=== PATIENT | female | born 1950 | race Caucasian/White ===

== ENCOUNTER 2016-09-16 14:36 | Inpatient (IN) | payer MEDICAID ==
[~2016-09-16] VITALS: Ht 167.6 cm; Wt 72.2 kg
[~2016-09-16 14:36] MED LIST: ALPR0.5T PO; AML5T PO; ASPI-498 PO; CARI-277 PO; ERGO1CAP6 PO; LIS20T PO; NOR10T PO; SIMV-8 PO
[2016-09-16 15:43] LABS: Basophils # (auto) 0 uL; Basophils % (auto) 0.8 % (0.0-2.0); Eosinophils # (auto) 0.1 uL; Eosinophils % (auto) 1.6 % (0.0-7.0); Hematocrit 38.1 % (36.0-46.0); Hemoglobin 12.9 g/dL (12.2-16.2); Lymphocytes # (auto) 1.5 uL; Lymphocytes % (auto) 25.5 % (10.0-50.0); Mean Corpuscular Hemoglobin 32.7 pg (28.0-32.0); Mean Corpuscular Hgb Conc. 33.9 g/dL (32.0-36.0); Mean Corpuscular Volume 96.4 fL (80.0-100.0); Monocytes # (auto) 0.3 uL; Monocytes % (auto) 5.4 % (0.0-12.0); Neutrophils # (auto) 3.9 uL; Neutrophils % (auto) 66.7 % (37.0-80.0); Platelet Count (auto) 238 10^3/uL (140-450); Red Cell Distribution Width 12.5 % (11.6-16.0); White Blood Cell 5.9 10^3/uL (4.4-10.8)
[2016-09-16 16:37] LABS: Albumin 3.4 g/dL (3.4-5.0); Alkaline Phosphatase 89 U/L (45-117); Anion Gap 7 (5-15); Aspartate Aminotransferase 14 U/L (15-37); BUN/Creatinine Ratio 13.1; Bilirubin, Total 0.3 mg/dL (0.2-1.0); Blood Urea Nitrogen 11 mg/dL (7-18); Calcium 8.5 mg/dL (8.5-10.1); Carbon Dioxide 27 mmol/L (21-32); Chloride 110 mmol/L (98-107); GFR African American 88 mL/min; GFR Non-African American 73 mL/min; Glucose 108 mg/dL (74-106); Magnesium 2.6 mg/dL (1.6-2.6); Potassium 3.9 mmol/L (3.5-5.1); Sodium 144 mmol/L (136-145); Total Protein 6.5 g/dL (6.4-8.2)
[2016-09-16] MEDS ORDERED: PROMETHAZINE HCL 25 MG/ML 1ML IV ONE (21:00)
[2016-09-16] MEDS ORDERED: cloNIDine HCL 0.1 MG TAB PO ONE (21:00)
[2016-09-16] MEDS ORDERED: ASPirin 81 mg TAB PO ONE (21:00)
[2016-09-16] MEDS ORDERED: MEPERIDINE HCL (50 MG/ML) 1 ML VIAL IV ONE (21:00)
[2016-09-16] MEDS ORDERED: ONDANSETRON HCL 4 MG/2 ML VIAL IV ONE (21:30)
[2016-09-17] VITALS (8 sets, daily range): BP systolic 102–146; BP diastolic 55–75
[2016-09-17] MEDS ORDERED: ONDANSETRON HCL 4 MG/2 ML VIAL IV PRN (01:45)
[2016-09-17] MEDS ORDERED: TEMAZEPAM 15 MG CAP PO PRN (01:45)
[2016-09-17] MEDS: MORPHINE SULF INJ 2 MG/ML SYRINGE 1ML IV PRN ×5 (03:32→21:54)
[2016-09-17] MEDS ORDERED: CARI-316 PO (04:23)
[2016-09-17] MEDS ORDERED: LISI-646 PO (04:23)
[2016-09-17 06:21] LABS: INR 0.98 (0.9-1.15); Partial Thromboplastin Time 27.1 sec (22.64-33.71); Prothrombin Time 10.7 sec (9.37-12.3)
[2016-09-17] MEDS: SODIUM CHLOR 0.9% PF (SALINE LOCK) 10ML VIAL IV SCH ×3 (06:41→21:54)
[2016-09-17] MEDS ORDERED: ENOXAPARIN SOD 30 MG/0.3 ML SYRINGE SC SCH (10:00)
[2016-09-17] MEDS ORDERED: ENOXAPARIN SOD 40 MG/0.4 ML SYRINGE SC SCH (10:00)
[2016-09-17] MEDS: FAMOTIDINE 20 MG TAB PO SCH ×2 (10:12→21:54)
[2016-09-17] MEDS ORDERED: ASPirin 81 mg TAB PO ONE (15:45)
[2016-09-17] MEDS: ACETAMINOPHEN 325 MG TAB PO PRN (16:09)
[2016-09-17 21:13] LABS: Urine Bilirubin Negative (Negative); Urine Blood Negative /uL (Negative); Urine Color Yellow (Yellow); Urine Glucose Normal (Normal); Urine Ketone Negative (Negative); Urine Nitrite POSITIVE (Negative); Urine RBC <1 /hpf (0 - 4); Urine Squamous Epithelial Cell FEW /hpf (<5); Urine Urobilinogen Normal (Negative); Urine pH 5.5 (5.0-8.0)
[2016-09-17] MEDS: ATORVASTATIN 20 MG TAB PO SCH (21:53)
[2016-09-18] VITALS (7 sets, daily range): BP systolic 150–162; BP diastolic 66–85
[2016-09-18] MEDS: MORPHINE SULF INJ 2 MG/ML SYRINGE 1ML IV PRN ×3 (05:11→18:06)
[2016-09-18] MEDS: SODIUM CHLOR 0.9% PF (SALINE LOCK) 10ML VIAL IV SCH ×3 (05:13→22:17)
[2016-09-18] MEDS: DOCUSATE SOD 100 MG CAP PO PRN ×2 (05:14→21:20)
[2016-09-18] MEDS: cefTRIAXone 1GM/50ML D5W 50 ML IV SCH (10:02)
[2016-09-18] MEDS: FAMOTIDINE 20 MG TAB PO SCH ×2 (10:23→21:20)
[2016-09-18] MEDS: ASPirin 81 mg TAB PO SCH (10:24)
[2016-09-18] MEDS: LORazepam 0.5 MG TAB PO PRN (21:20)
[2016-09-18] MEDS: traZODone HCL 50 MG TAB PO SCH (21:21)
[2016-09-18] MEDS: ATORVASTATIN 20 MG TAB PO SCH (21:21)
[2016-09-19] MEDS: MORPHINE SULF INJ 2 MG/ML SYRINGE 1ML IV PRN ×4 (04:09→20:08)
[2016-09-19 05:30] VITALS: BP 158/74
[2016-09-19 06:15] LABS: Basophils # (auto) 0 uL; Basophils % (auto) 0.6 % (0.0-2.0); Eosinophils # (auto) 0.1 uL; Eosinophils % (auto) 2.4 % (0.0-7.0); Hematocrit 37.3 % (36.0-46.0); Hemoglobin 13.2 g/dL (12.2-16.2); Lymphocytes # (auto) 1.2 uL; Lymphocytes % (auto) 22.7 % (10.0-50.0); Mean Corpuscular Hemoglobin 33.6 pg (28.0-32.0); Mean Corpuscular Hgb Conc. 35.4 g/dL (32.0-36.0); Mean Corpuscular Volume 94.8 fL (80.0-100.0); Mean Platelet Volume 8.1 fL (7.4-10.4); Monocytes # (auto) 0.4 uL; Neutrophils # (auto) 3.5 uL; Neutrophils % (auto) 66.3 % (37.0-80.0); Platelet Count (auto) 191 10^3/uL (140-450); Red Cell Distribution Width 12.1 % (11.6-16.0); White Blood Cell 5.3 10^3/uL (4.4-10.8)
[2016-09-19] MEDS: SODIUM CHLOR 0.9% PF (SALINE LOCK) 10ML VIAL IV SCH ×3 (06:24→20:08)
[2016-09-19 06:35] LABS: Calcium 8.4 mg/dL (8.5-10.1); Potassium 4.2 mmol/L (3.5-5.1)
[2016-09-19 06:37] LABS: BUN/Creatinine Ratio 17.8
[2016-09-19 06:40] LABS: Bilirubin, Total 0.4 mg/dL (0.2-1.0); Total Protein 6.1 g/dL (6.4-8.2)
[2016-09-19] MEDS: cefTRIAXone 1GM/50ML D5W 50 ML IV SCH (09:29)
[2016-09-19] MEDS: ASPirin 81 mg TAB PO SCH (09:30)
[2016-09-19] MEDS: FAMOTIDINE 20 MG TAB PO SCH ×2 (09:30→23:07)
[2016-09-19] MEDS: LORazepam 0.5 MG TAB PO PRN ×2 (12:00→23:08)
[2016-09-19 20:30] VITALS: BP 145/73
[2016-09-19 22:00] VITALS: BP 145/73
[2016-09-19] MEDS: DOCUSATE SOD 100 MG CAP PO PRN (23:07)
[2016-09-19] MEDS: ATORVASTATIN 20 MG TAB PO SCH (23:07)
[2016-09-19] MEDS: traZODone HCL 50 MG TAB PO SCH (23:07)
[2016-09-20] MEDS: SODIUM CHLOR 0.9% PF (SALINE LOCK) 10ML VIAL IV SCH ×3 (04:15→21:28)
[2016-09-20] MEDS: MORPHINE SULF INJ 2 MG/ML SYRINGE 1ML IV PRN ×4 (04:46→20:37)
[2016-09-20 05:00] VITALS: BP 130/53
[2016-09-20 08:00] VITALS: BP 153/67
[2016-09-20] MEDS: ASPirin 81 mg TAB PO SCH (09:27)
[2016-09-20] MEDS: FAMOTIDINE 20 MG TAB PO SCH ×2 (09:27→21:25)
[2016-09-20] MEDS: cefTRIAXone 1GM/50ML D5W 50 ML IV SCH (09:27)
[2016-09-20 12:00] VITALS: BP 149/7
[2016-09-20 17:00] VITALS: BP 156/71
[2016-09-20] MEDS: LORazepam 0.5 MG TAB PO PRN (17:29)
[2016-09-20] MEDS: ACETAMINOPHEN 325 MG TAB PO PRN (17:30)
[2016-09-20 20:00] VITALS: BP 155/81
[2016-09-20 21:06] VITALS: BP 155/80
[2016-09-20] MEDS: ATORVASTATIN 20 MG TAB PO SCH (21:26)
[2016-09-20] MEDS: traZODone HCL 50 MG TAB PO SCH (21:26)
[2016-09-21] VITALS (8 sets, daily range): BP systolic 143–160; BP diastolic 63–84
[2016-09-21] MEDS: MORPHINE SULF INJ 2 MG/ML SYRINGE 1ML IV PRN ×4 (04:20→20:18)
[2016-09-21] MEDS: SODIUM CHLOR 0.9% PF (SALINE LOCK) 10ML VIAL IV SCH ×3 (06:16→21:41)
[2016-09-21 06:33] LABS: Basophils # (auto) 0 uL; Basophils % (auto) 0.6 % (0.0-2.0); Eosinophils # (auto) 0.1 uL; Eosinophils % (auto) 2.4 % (0.0-7.0); Hematocrit 39.6 % (36.0-46.0); Hemoglobin 13.6 g/dL (12.2-16.2); Lymphocytes # (auto) 1.2 uL; Lymphocytes % (auto) 23.5 % (10.0-50.0); Mean Corpuscular Hgb Conc. 34.3 g/dL (32.0-36.0); Mean Corpuscular Volume 96.3 fL (80.0-100.0); Mean Platelet Volume 8.3 fL (7.4-10.4); Monocytes # (auto) 0.4 uL; Monocytes % (auto) 7.7 % (0.0-12.0); Neutrophils # (auto) 3.5 uL; Neutrophils % (auto) 65.8 % (37.0-80.0); Platelet Count (auto) 225 10^3/uL (140-450); Red Cell Distribution Width 12.5 % (11.6-16.0); White Blood Cell 5.3 10^3/uL (4.4-10.8)
[2016-09-21 06:49] LABS: BUN/Creatinine Ratio 16.5; Calcium 8.6 mg/dL (8.5-10.1); Potassium 4.1 mmol/L (3.5-5.1)
[2016-09-21] MEDS: LORazepam 0.5 MG TAB PO PRN ×2 (08:41→21:41)
[2016-09-21] MEDS: cefTRIAXone 1GM/50ML D5W 50 ML IV SCH (09:00)
[2016-09-21] MEDS ORDERED: VERAPAMIL 2.5MG/ML INJ 2ML VIAL IV ONE (10:24)
[2016-09-21] MEDS: FAMOTIDINE 20 MG TAB PO SCH ×2 (10:35→21:42)
[2016-09-21] MEDS: CITALOPRAM HYDROBR 20 MG TAB PO SCH (10:35)
[2016-09-21] MEDS: ASPirin 81 mg TAB PO SCH (10:35)
[2016-09-21] MEDS ORDERED: NITROGLYCERIN 0.4 MG SL TAB SL ONE (11:00)
[2016-09-21] MEDS ORDERED: IOHEXOL 350 MG/ML 100ML IJ ONE (11:00)
[2016-09-21] MEDS: ATORVASTATIN 20 MG TAB PO SCH (21:40)
[2016-09-21] MEDS: DOCUSATE SOD 100 MG CAP PO PRN (21:40)
[2016-09-21] MEDS: traZODone HCL 50 MG TAB PO SCH (21:41)
[2016-09-22] MEDS: MORPHINE SULF INJ 2 MG/ML SYRINGE 1ML IV PRN ×4 (05:25→22:15)
[2016-09-22] MEDS: SODIUM CHLOR 0.9% PF (SALINE LOCK) 10ML VIAL IV SCH ×3 (05:25→21:30)
[2016-09-22 06:00] VITALS: BP 142/85
[2016-09-22 09:00] VITALS: BP 155/67
[2016-09-22] MEDS: ASPirin 81 mg TAB PO SCH (10:06)
[2016-09-22] MEDS: FAMOTIDINE 20 MG TAB PO SCH ×2 (10:06→21:29)
[2016-09-22] MEDS: cefTRIAXone 1GM/50ML D5W 50 ML IV SCH (10:06)
[2016-09-22] MEDS: CITALOPRAM HYDROBR 20 MG TAB PO SCH (10:06)
[2016-09-22] MEDS: LORazepam 0.5 MG TAB PO PRN (11:04)
[2016-09-22 14:42] VITALS: BP 163/84
[2016-09-22 17:42] VITALS: BP 151/74
[2016-09-22] MEDS ORDERED: HYDROcodone-ACET 5/325MG TAB PO PRN (19:30)
[2016-09-22 20:00] VITALS: BP 152/80
[2016-09-22] MEDS: traZODone HCL 50 MG TAB PO SCH (21:29)
[2016-09-22] MEDS: ATORVASTATIN 20 MG TAB PO SCH (21:29)
[2016-09-22] MEDS: DOCUSATE SOD 100 MG CAP PO PRN (21:29)
[2016-09-22 22:00] VITALS: BP 150/80
[2016-09-23] MEDS: MORPHINE SULF INJ 2 MG/ML SYRINGE 1ML IV PRN ×2 (04:59→09:30)
[2016-09-23 05:00] VITALS: BP 134/75
[2016-09-23] MEDS: SODIUM CHLOR 0.9% PF (SALINE LOCK) 10ML VIAL IV SCH (06:27)
[2016-09-23 07:17] LABS: Basophils # (auto) 0 uL; Basophils % (auto) 0.7 % (0.0-2.0); Eosinophils # (auto) 0.2 uL; Eosinophils % (auto) 2.7 % (0.0-7.0); Hematocrit 38.3 % (36.0-46.0); Hemoglobin 13.2 g/dL (12.2-16.2); Lymphocytes # (auto) 1.2 uL; Mean Corpuscular Hemoglobin 32.8 pg (28.0-32.0); Mean Corpuscular Hgb Conc. 34.4 g/dL (32.0-36.0); Mean Corpuscular Volume 95.3 fL (80.0-100.0); Mean Platelet Volume 8.3 fL (7.4-10.4); Monocytes # (auto) 0.4 uL; Monocytes % (auto) 7.1 % (0.0-12.0); Neutrophils # (auto) 3.9 uL; Neutrophils % (auto) 68.5 % (37.0-80.0); Platelet Count (auto) 223 10^3/uL (140-450); Red Cell Distribution Width 12.3 % (11.6-16.0); White Blood Cell 5.7 10^3/uL (4.4-10.8)
[2016-09-23 07:40] LABS: Albumin 3.3 g/dL (3.4-5.0); BUN/Creatinine Ratio 21.4; Bilirubin, Total 0.6 mg/dL (0.2-1.0); Calcium 8.3 mg/dL (8.5-10.1); Potassium 4.1 mmol/L (3.5-5.1); Total Protein 6.6 g/dL (6.4-8.2)
[2016-09-23] MEDS: cefTRIAXone 1GM/50ML D5W 50 ML IV SCH (08:33)
[2016-09-23] MEDS: ASPirin 81 mg TAB PO SCH (08:33)
[2016-09-23] MEDS: CITALOPRAM HYDROBR 20 MG TAB PO SCH (08:33)
[2016-09-23] MEDS: FAMOTIDINE 20 MG TAB PO SCH (08:33)
[2016-09-23 09:00] VITALS: BP 145/61
[2016-09-23 10:45] VITALS: BP 108/60
== END 2016-09-23 11:38 | disposition home or self-care (01) | DRG 198 ==
LOC: ER 14:41 → TELE-DOU 14:42 → TELE-EAST 09-17 02:44
PROVIDERS: ADMIT Emergency Medicine; ATTEND Internal Medicine
DX: R07.9 Chest pain, unspecified (principal); I25.2 Old myocardial infarction; E44.1 Mild protein-calorie malnutrition; G93.89 Other specified disorders of brain; I25.10 Atherosclerotic heart disease of native coronary artery without angina pectoris; J44.9 Chronic obstructive pulmonary disease, unspecified; I10 Essential (primary) hypertension; F32.9 Major depressive disorder, single episode, unspecified; E78.5 Hyperlipidemia, unspecified; F41.9 Anxiety disorder, unspecified; F17.210 Nicotine dependence, cigarettes, uncomplicated; G89.4 Chronic pain syndrome; Z82.49 Family history of ischemic heart disease and other diseases of the circulatory system; Z83.3 Family history of diabetes mellitus; E78.00 Pure hypercholesterolemia, unspecified; Z90.710 Acquired absence of both cervix and uterus; Z90.49 Acquired absence of other specified parts of digestive tract; Z98.61 Coronary angioplasty status; Z88.1 Allergy status to other antibiotic agents; Z88.5 Allergy status to narcotic agent; Z88.8 Allergy status to other drugs, medicaments and biological substances; Z79.82 Long term (current) use of aspirin; Z85.9 Personal history of malignant neoplasm, unspecified; Z83.6 Family history of other diseases of the respiratory system; R42 Dizziness and giddiness; R26.89 Other abnormalities of gait and mobility; Z68.25 Body mass index [BMI] 25.0-25.9, adult
CPT/HCPCS: 36415; 70551; 71020; 75574; 80048; 80053; 81001; 83735; 84484; 85025; 85610; 85730; 93005; 93306; 93886; 96374; 96375; 99291; J0696; J2405

== ENCOUNTER 2016-09-23 18:41 | Emergency (ER) | payer MEDICAID ==
[~2016-09-23] VITALS: Ht 167.6 cm; Wt 77.1 kg
[~2016-09-23 18:41] MED LIST changes: +CARI-316 PO; +LISI-646 PO
[2016-09-23] MEDS ORDERED: KETOROLAC TROMETH 60MG/2ML VIAL IM ONE (21:45)
[2016-09-23 22:26] VITALS: BP 183/87
== END 2016-09-23 22:52 | disposition home or self-care (01) ==
LOC: ER 18:51
DX: S62.305A Unspecified fracture of fourth metacarpal bone, left hand, initial encounter for closed fracture (principal); F17.210 Nicotine dependence, cigarettes, uncomplicated; J44.9 Chronic obstructive pulmonary disease, unspecified; E78.5 Hyperlipidemia, unspecified; I10 Essential (primary) hypertension; I25.2 Old myocardial infarction; I25.10 Atherosclerotic heart disease of native coronary artery without angina pectoris; W01.0XXA Fall on same level from slipping, tripping and stumbling without subsequent striking against object, initial encounter; Y93.E1 Activity, personal bathing and showering; Y99.8 Other external cause status; Y92.89 Other specified places as the place of occurrence of the external cause; Z79.82 Long term (current) use of aspirin; Z90.710 Acquired absence of both cervix and uterus; Z79.899 Other long term (current) drug therapy; Z88.6 Allergy status to analgesic agent; Z88.8 Allergy status to other drugs, medicaments and biological substances
CPT/HCPCS: 29125; 73130; 96372; 99284; J1885

== ENCOUNTER 2017-03-23 12:16 | Emergency (ER) | payer MEDICAID ==
[~2017-03-23] VITALS: Ht 167.6 cm; Wt 91.6 kg
[~2017-03-23 12:16] MED LIST changes: -AML5T PO; -CARI-277 PO; -ERGO1CAP6 PO; -LIS20T PO; -SIMV-8 PO
[2017-03-23 12:28] VITALS: BP 129/90
[2017-03-23] MEDS ORDERED: cefTRIAXone SOD 1,000 MG VL IM ONE (13:30)
[2017-03-23] MEDS ORDERED: ONDANSETRON HCL 4 MG/2 ML VIAL IM ONE (13:30)
== END 2017-03-23 14:06 | disposition home or self-care (01) ==
LOC: ER 12:16
DX: L03.113 Cellulitis of right upper limb (principal); I10 Essential (primary) hypertension; E78.5 Hyperlipidemia, unspecified; I25.2 Old myocardial infarction; I25.10 Atherosclerotic heart disease of native coronary artery without angina pectoris; J44.9 Chronic obstructive pulmonary disease, unspecified; F17.210 Nicotine dependence, cigarettes, uncomplicated; Z79.82 Long term (current) use of aspirin; Z88.6 Allergy status to analgesic agent; Z90.710 Acquired absence of both cervix and uterus; Z90.49 Acquired absence of other specified parts of digestive tract
CPT/HCPCS: 96372; 99284; J0696; J2405

== ENCOUNTER 2017-05-07 11:15 | Emergency (ER) | payer MEDICAID ==
[~2017-05-07] VITALS: Ht 167.6 cm; Wt 81.6 kg
[2017-05-07 13:14] VITALS: BP 150/74
[2017-05-07] MEDS ORDERED: KETOROLAC TROMETH 60MG/2ML VIAL IM ONE (13:45)
== END 2017-05-07 14:15 | disposition home or self-care (01) ==
LOC: ER 11:15
DX: G44.209 Tension-type headache, unspecified, not intractable (principal); I25.10 Atherosclerotic heart disease of native coronary artery without angina pectoris; J44.9 Chronic obstructive pulmonary disease, unspecified; I10 Essential (primary) hypertension; I25.2 Old myocardial infarction; E78.5 Hyperlipidemia, unspecified; F17.210 Nicotine dependence, cigarettes, uncomplicated; Z76.0 Encounter for issue of repeat prescription; Z90.49 Acquired absence of other specified parts of digestive tract; Z90.710 Acquired absence of both cervix and uterus; Z90.89 Acquired absence of other organs
CPT/HCPCS: 70450; 81002; 93005; 96372; 99284; J1885

== ENCOUNTER 2017-12-27 08:31 | Emergency (ER) | payer MEDICARE, MEDICAID ==
[~2017-12-27] VITALS: Ht 167.6 cm; Wt 86.2 kg
[2017-12-27 09:00] VITALS: BP 146/74
[2017-12-27] MEDS ORDERED: KETOROLAC TROMETH 60MG/2ML VIAL IM ONE (10:30)
== END 2017-12-27 11:00 | disposition home or self-care (01) ==
LOC: ER 08:31
DX: S33.5XXA Sprain of ligaments of lumbar spine, initial encounter (principal); I10 Essential (primary) hypertension; I25.2 Old myocardial infarction; E78.5 Hyperlipidemia, unspecified; J44.9 Chronic obstructive pulmonary disease, unspecified; F17.210 Nicotine dependence, cigarettes, uncomplicated; Z88.6 Allergy status to analgesic agent; Z88.1 Allergy status to other antibiotic agents; Z88.8 Allergy status to other drugs, medicaments and biological substances; Z86.73 Personal history of transient ischemic attack (TIA), and cerebral infarction without residual deficits; Z90.89 Acquired absence of other organs; Z90.710 Acquired absence of both cervix and uterus; Z90.49 Acquired absence of other specified parts of digestive tract; X58.XXXA Exposure to other specified factors, initial encounter; Y93.89 Activity, other specified; Y99.8 Other external cause status; Y92.89 Other specified places as the place of occurrence of the external cause
CPT/HCPCS: 72100; 96372; 99284; J1885

== ENCOUNTER → 2019-06-07 | Outpatient (CLI) | payer MEDICARE, MEDICAID ==
[~2019-06-07] VITALS: Ht 167.6 cm; Wt 86.2 kg
[~2019-06-07] MED LIST changes: +ADENOSINE 72 MG in GIVE UN-DILUTED 0 ML IV STA; -CARI-316 PO; +CARI350T22 PO
== END | disposition home or self-care (01) ==
LOC: XY 08:08
PROVIDERS: ATTEND Internal Medicine
DX: I25.10 Atherosclerotic heart disease of native coronary artery without angina pectoris (principal); I11.0 Hypertensive heart disease with heart failure; I50.9 Heart failure, unspecified; J44.9 Chronic obstructive pulmonary disease, unspecified; Z95.5 Presence of coronary angioplasty implant and graft; Z95.1 Presence of aortocoronary bypass graft
CPT/HCPCS: 78452; 93017; A9500; J0153

== ENCOUNTER → 2019-06-14 | Outpatient (CLI) | payer MEDICARE, MEDICAID ==
[~2019-06-14] MED LIST changes: -ADENOSINE 72 MG in GIVE UN-DILUTED 0 ML IV STA
== END | disposition home or self-care (01) ==
LOC: XYW 09:27
PROVIDERS: ATTEND Internal Medicine
DX: I07.1 Rheumatic tricuspid insufficiency (principal); I25.10 Atherosclerotic heart disease of native coronary artery without angina pectoris
CPT/HCPCS: 93306

== ENCOUNTER 2019-12-11 09:52 | Inpatient (IN) | payer MEDICARE, MEDICAID ==
[~2019-12-11] VITALS: Ht 167.6 cm; Wt 90.6 kg
[2019-12-11] MEDS ORDERED: SODIUM CHLORIDE 0.9% 1,000 ML IV ONE ×2 (10:26)
[2019-12-11] MEDS ORDERED: ONDANSETRON HCL 4 MG/2 ML VIAL IV ONE (10:30)
[2019-12-11 11:06] LABS: Basophils # (auto) 0.1 10 ^3/uL (0-0.2); Eosinophils # (auto) 0 10 ^3/uL (0-0.8); Eosinophils % (auto) 0.4 % (0.0-7.0); Hematocrit 39.8 % (36.0-46.0); Hemoglobin 13.2 g/dL (12.2-16.2); Lymphocytes % (auto) 11.2 % (10.0-50.0); Mean Corpuscular Hemoglobin 32.2 pg (28.0-32.0); Mean Corpuscular Hgb Conc. 33.2 g/dL (32.0-36.0); Mean Corpuscular Volume 96.8 fL (80.0-100.0); Monocytes # (auto) 0.5 10 ^3/uL (0-1.3); Monocytes % (auto) 5.2 % (0.0-12.0); Neutrophils # (auto) 7.4 10 ^3/uL (1.6-8.6); Neutrophils % (auto) 82.2 % (37.0-80.0); Nucleated Red Blood Cells % 0.2 %; Platelet Count (auto) 242 10^3/uL (140-450); Red Blood Cells 4.11 10^6/uL (4.0-5.20)
[2019-12-11 11:19] LABS: Albumin 3.2 g/dL (3.4-5.0); Anion Gap 4 (5-15); Blood Urea Nitrogen 8 mg/dL (7-18); Calcium 8.7 mg/dL (8.5-10.1); Carbon Dioxide 29 mmol/L (21-32); Chloride 104 mmol/L (98-107); Glucose 91 mg/dL (74-106); Potassium 3.7 mmol/L (3.5-5.1); Sodium 137 mmol/L (136-145)
[2019-12-11 11:25] LABS: Alanine Aminotransferase 13 U/L (13-56); Alkaline Phosphatase 61 U/L (45-117); Aspartate Aminotransferase 12 U/L (15-37); BUN/Creatinine Ratio 8.9; Bilirubin, Total 0.6 mg/dL (0.2-1.0); GFR African American 80 mL/min; GFR Non-African American 66 mL/min; Total Protein 7.1 g/dL (6.4-8.2)
[2019-12-11] MEDS ORDERED: cefTRIAXone 1GM/50ML D5W 50 ML IV ONE (11:30)
[2019-12-11] MEDS ORDERED: metroNIDAZOLE 500MG/100ML 100 ML IV ONE ×2 (11:30→12:15)
[2019-12-11] MEDS ORDERED: MORPHINE SULFATE 4 MG/ML SYR/VIAL IV ONE (11:30)
[2019-12-11] MEDS ORDERED: ACETAMINOPHEN 325 MG TAB PO PRN (12:15)
[2019-12-11] MEDS ORDERED: ALUM & MAG HYDROX-SIMETH LIQ(MAALOX) 30 ML PO PRN (12:15)
[2019-12-11] MEDS ORDERED: DOCUSATE SOD 100 MG CAP PO PRN (12:15)
[2019-12-11] MEDS ORDERED: NITROGLYCERIN 0.4 MG SL TAB SL PRN (12:15)
[2019-12-11] MEDS ORDERED: LORazepam 0.5 MG TAB PO PRN (12:15)
[2019-12-11] MEDS ORDERED: CYCLOBENZAPRINE HCL 10 MG TAB PO PRN (12:15)
[2019-12-11] MEDS ORDERED: MORPHINE SULF INJ 2 MG/ML SYRINGE 1ML IV PRN (12:15)
[2019-12-11] MEDS ORDERED: PANTOPRAZOLE 40 MG TAB PO ONE (12:15)
[2019-12-11] MEDS: SODIUM CHLORIDE 0.9% 1,000 ML IV SCH (12:41)
[2019-12-11] MEDS ORDERED: CARISOPRODOL 350 MG TAB PO ONE (13:00)
[2019-12-11] MEDS ORDERED: DICYCLOMINE HCL (10MG/ML) 2 ML AMPULE IM ONE (13:00)
[2019-12-11] MEDS: MORPHINE SULF INJ 2 MG/ML SYRINGE 1ML IV PRN ×3 (13:14→22:49)
[2019-12-11] MEDS ORDERED: MORP1TAB12 PO (13:34)
[2019-12-11] MEDS ORDERED: IBUP800T24 PO (13:34)
[2019-12-11] MEDS ORDERED: OMEP-263 PO (13:34)
[2019-12-11] MEDS ORDERED: CETI10TA80 PO (13:34)
[2019-12-11] MEDS ORDERED: ALBUAER3 IN (13:34)
[2019-12-11] MEDS ORDERED: ZOLP5TAB5 PO (13:34)
[2019-12-11] MEDS ORDERED: TRAZ100T3 PO (13:34)
[2019-12-11] MEDS ORDERED: ROPI0.5T18 PO (13:35)
[2019-12-11] MEDS ORDERED: TIZA4TAB9 PO (13:35)
[2019-12-11] MEDS ORDERED: POTA8TAB2 PO (13:37)
[2019-12-11] MEDS ORDERED: HYDR12.56 PO (13:37)
[2019-12-11] MEDS: CARISOPRODOL 350 MG TAB PO SCH ×2 (13:47→21:49)
[2019-12-11 14:00] LABS: Cholesterol 161 mg/dL (< 200)
[2019-12-11 14:04] LABS: HDL Cholesterol 60 mg/dL (40-59); LDL Cholesterol 91 mg/dL (< 100); Triglycerides 88 mg/dL (< 150)
[2019-12-11 16:05] LABS: Urine Bacteria NONE SEEN /hpf (None Seen); Urine Blood TRACE /uL (Negative); Urine Mucus FEW (None Seen); Urine Specific Gravity 1.021 (1.001-1.035); Urine WBC 9 /hpf (0 - 5)
[2019-12-11 16:29] LABS: Alcohol, Urine < 3.0 mg/dL (0-10); Amphetamine Screen, Urine NEGATIVE (NEGATIVE); Barbiturate Scree,Urine NEGATIVE (NEGATIVE); Benzodiazephine Screen, Urine NEGATIVE (NEGATIVE); Cannabinoid Screen, Urine POSITIVE (NEGATIVE); Cocaine Screen, Urine NEGATIVE (NEGATIVE); Opiate Scree,Urine POSITIVE (NEGATIVE); Phencyclidine Screen, Urine NEGATIVE (NEGATIVE)
[2019-12-11] MEDS: FUROSEMIDE 20 MG/2 ML VIAL IV SCH (18:00)
--- NOTE | 2019-12-11 19:35 | NUR ---
RT NOTE: PT ASSESSED FOR PRN MED NEB TX, PT ON 2LPM NC SPO2 100%, HR 61, RR 16. BS CLEAR WITH NO DISTRESS. PT DENIES SOB AT THIS TIME. NO TX INDICATED AT THIS TIME.
[2019-12-11] MEDS: metroNIDAZOLE 500MG/100ML 100 ML IV SCH (20:18)
--- NOTE | 2019-12-11 21:00 | NUR ---
assumed care of pt, who is alert and oriented x4, skin cdi, IV flushes freely, O2 at 2 lpm, via nc. c/o pain at this time, will f/u.
[2019-12-11 21:15] VITALS: BP 146/93
[2019-12-11] MEDS: ATORVASTATIN 20 MG TAB PO SCH (21:48)
[2019-12-11] MEDS: traZODone HCL 50 MG TAB PO SCH (21:48)
[2019-12-11] MEDS: HYDROcodone-ACET 5/325MG TAB PO PRN (21:50)
[2019-12-11 22:00] VITALS: BP 146/93
[2019-12-11] MEDS ORDERED: CARVEDILOL 3.125 MG TAB PO SCH (22:00)
[2019-12-11 23:32] VITALS: BP 146/93
[2019-12-12] MEDS: MORPHINE SULF INJ 2 MG/ML SYRINGE 1ML IV PRN ×5 (02:45→20:25)
[2019-12-12] MEDS: metroNIDAZOLE 500MG/100ML 100 ML IV SCH ×3 (03:56→20:24)
[2019-12-12 05:00] VITALS: BP 152/91
[2019-12-12] MEDS: SODIUM CHLORIDE 0.9% 1,000 ML IV SCH ×2 (05:13→21:34)
[2019-12-12] MEDS: FUROSEMIDE 20 MG/2 ML VIAL IV SCH ×2 (05:40→16:45)
[2019-12-12] MEDS: CARISOPRODOL 350 MG TAB PO SCH ×3 (06:50→21:52)
--- NOTE | 2019-12-12 07:30 | NUR ---
Opening Shift Note Assumed care of patient, awake, alert, and oriented. No S/S of distress/SOB or pain. Bed in lowest/locked position, bed rails up x2, call light within reach. Instructed on POC and to call for assist PRN. Will continue to monitor for changes Q1hr and PRN.
[2019-12-12] MEDS: cefTRIAXone 1GM/50ML D5W 50 ML IV SCH (08:03)
[2019-12-12] MEDS: DULoxetine HCL 30 MG CAP PO SCH (08:04)
[2019-12-12] MEDS: PANTOPRAZOLE 40 MG TAB PO SCH (08:04)
[2019-12-12] MEDS: ENOXAPARIN SOD 40 MG/0.4 ML SYRINGE SC SCH (08:04)
[2019-12-12] MEDS: ASPirin-EC 81 mg tab PO SCH (08:05)
[2019-12-12] MEDS: LISINOPRIL 20 MG TAB PO SCH (08:05)
[2019-12-12 09:00] VITALS: BP 123/67
[2019-12-12] MEDS: HYDROcodone-ACET 5/325MG TAB PO PRN (09:34)
--- NOTE | 2019-12-12 10:55 | NUR ---
Respiratory note: PT ASSESSED FOR PRN MN TX. HR 61, RR 18, POX 96% ON 2L NC, BS ARE CLEAR/DIMINISHED. NO SOB OR DISTRESS NOTED. PT WAS NOTIFY TO HAVE RN PAGED IF MN TX WAS NEEDED.
[2019-12-12] MEDS: ONDANSETRON HCL 4 MG/2 ML VIAL IV PRN ×2 (11:01→20:24)
--- NOTE | 2019-12-12 11:19 | NUR ---
MD ROUNDS DR JOYCE AT BEDSIDE DISCUSSING POC WITH PATIENT. NO NEW ORDERS RECEIVED AT THIS TIME. WILL CONTINUE TO MONITOR
[2019-12-12 12:49] VITALS: BP 138/59
--- NOTE | 2019-12-12 14:33 | NUR ---
Midline Placement: Patient educated on need for midline placement. All risks and benefits explained and all questions and concerns addresses prior to procedure. 20g/8cm midline inserted via left brachial vein using Ultrasound. Sterile technique utilized. Blood return obtained from lumen and flushed easily with NS using proper technique. Midline secured with saline lock; biodisc and occlusive dressing applied. Ju PAN notified. Midline lot #[id number]
[2019-12-12 16:44] VITALS: BP 114/73
--- NOTE | 2019-12-12 16:57 | NUR ---
IV removal IV DC'd with clean sterile technique, catheter fully intact. Pressure dressing applied to site. Patient tolerated well.
--- NOTE | 2019-12-12 19:02 | NUR ---
RT NOTE PT WAS SEEN BY RT FOR PRN HHN TX ASSESSMENT. PT STATES NO TREATMENT NEEDED AT THIS TIME. HR 51, RR 16, BS CLEAR/DIM, POX 96% ON 2L NASAL CANNULA AND APPEARS TO TOLERATE WELL. CONT ORDERED Addendum: 12/12/19 at 1915 by Kimberly Vaughan RT Amended: Links added.
--- NOTE | 2019-12-12 20:30 | NUR ---
Patient Complains of Pain in Suprapubic Region. Patient given pain medication along w/ anti-nausea medication as prescribed. Will continue to monitor.
[2019-12-12] MEDS: ATORVASTATIN 20 MG TAB PO SCH (21:52)
[2019-12-12] MEDS: traZODone HCL 50 MG TAB PO SCH (21:52)
[2019-12-12 22:26] VITALS: BP 115/67
[2019-12-13] VITALS (7 sets, daily range): BP systolic 99–153; BP diastolic 50–77
--- NOTE | 2019-12-13 03:37 | NUR ---
Patient Midline unable to Flush Order for PICC line nurse to re-evaluate line. Attempted to flush line multiple times (x3); line is not flushing.
[2019-12-13] MEDS: MORPHINE SULF INJ 2 MG/ML SYRINGE 1ML IV PRN ×4 (03:52→20:13)
--- NOTE | 2019-12-13 04:00 | NUR ---
IV insertion IV access obtained, via clean sterile technique by inserting 22 gauge catheter at RIGHT UPPER ARM after 3 attempt(s). IV secured properly. No trauma to site. Patient tolerated procedure well.
[2019-12-13] MEDS: ONDANSETRON HCL 4 MG/2 ML VIAL IV PRN ×4 (04:07→20:14)
[2019-12-13] MEDS: metroNIDAZOLE 500MG/100ML 100 ML IV SCH ×3 (04:07→20:13)
[2019-12-13] MEDS: CARISOPRODOL 350 MG TAB PO SCH ×3 (05:52→21:24)
[2019-12-13] MEDS: FUROSEMIDE 20 MG/2 ML VIAL IV SCH ×2 (05:52→18:00)
--- NOTE | 2019-12-13 05:54 | NUR ---
LAB CALLED PERTAINING TO BLOOD CULTURE: GRAM POSITIVE COCCI IN [facility] HOSPITALIST PAGED AT THIS TIME. Addendum: 12/13/19 at 0623 by JAYDEN LO RN RN HOSPITALIST RETURNED CALL; ORDERS FOR VANCOMYCIN PER PHARM HAS BEEN PRESCRIBED.
[2019-12-13] MEDS ORDERED: VANCOMYCIN PER PHARMACY 0 MG IV SCH (06:30)
--- NOTE | 2019-12-13 07:30 | NUR ---
Opening Shift Note Assumed care of patient, awake and alert. No S/S of distress/SOB or pain. Instructed on POC and to call for assist PRN, will continue to monitor for changes Q1hr and PRN. Bed is locked and in lowest position. Call light within reach.
[2019-12-13] MEDS ORDERED: VANCOMYCIN 1GM/250ML 250 ML IV ONE (08:00)
[2019-12-13 08:07] LABS: BUN/Creatinine Ratio 12.7; Calcium 7.9 mg/dL (8.5-10.1)
--- NOTE | 2019-12-13 08:30 | NUR ---
PATIENT LEFT UPPER MIDLINE ASSESSED. UNABLE TO FLUSH MIDLINE. PATIENT LEFT RADIAL PULSE WEAK, LEFT HAND CAPILLARY REFILL DELAYED MORE THAN 3 SECONDS, AND LEFT HAND COOL TO THE TOUCH. DR. JOYCE PAGED TO UPDATE ON MIDLINE ACCESS. SPOKE TO PICC LINE NURSE ALTHEA REGARDING MIDLINE ASSESSMENT. MIDLINE WILL BE REMOVED PER PICC LINE RN. WILL FOLLOW ORDERS TO REMOVE MIDLINE IN LEFT UPPER ARM.
[2019-12-13] MEDS: cefTRIAXone 1GM/50ML D5W 50 ML IV SCH (08:34)
[2019-12-13] MEDS ORDERED: ONDANSETRON HCL 4 MG/2 ML VIAL ONE ×2 (08:50→14:39)
[2019-12-13] MEDS: PANTOPRAZOLE 40 MG TAB PO SCH (10:33)
[2019-12-13] MEDS: LISINOPRIL 20 MG TAB PO SCH (10:33)
[2019-12-13] MEDS: DULoxetine HCL 30 MG CAP PO SCH (10:33)
[2019-12-13] MEDS: ASPirin-EC 81 mg tab PO SCH (10:33)
[2019-12-13] MEDS: ENOXAPARIN SOD 40 MG/0.4 ML SYRINGE SC SCH (10:34)
--- NOTE | 2019-12-13 11:06 | NUR ---
MIDLINE CONSULT SPOKE WITH PRIMARY RN ABOUT THEM UNABLE TO FLUSH MIDLINE, STATES PT HAS NUMBNESS TO THE HAND, PULSE IS WEAKER ON THAT SIDE AND SKIN IS COLD TO TOUCH, ADVISED HER TO BRENDA METZ TO EVALUATE FOR POSSIBLE DVT. PRIMARY RN EDUCATED ABOUT REMOVING MIDLINE AT THIS TIME. PT HAS IV ACCESS AT THIS TIME AND WILL POSSIBLY BE DISCHARGED HOMO TOMORROW. NO NEED FOR NEW MIDLINE AT THIS TIME.
[2019-12-13] MEDS ORDERED: MORPHINE SULF INJ 2 MG/ML SYRINGE 1ML ONE (14:39)
[2019-12-13] MEDS: SODIUM CHLORIDE 0.9% 1,000 ML IV SCH (14:44)
--- NOTE | 2019-12-13 16:10 | NUR ---
MIDLINE REMOVED FROM LEFT UPPER ARM DUE TO DC ORDERS PER PICC LINE NURSE ALTHEA. IV CATHETER INTACT, NO SIGNS OF INFECTION. PATIENT TOLERATED IV CATHETER REMOVAL WITH NO SIGNS OF DISTRESS. 4X4 DRESSING AND COBAND APPLIED, NO MAJOR SIGNS OF BLEEDING. WILL CONTINUE TO MONITOR.
[2019-12-13] MEDS: VANCOMYCIN 1GM/250ML 250 ML IV SCH (20:13)
--- NOTE | 2019-12-13 20:30 | NUR ---
IV removal due to Infiltration IV DC'd with sterile technique, catheter fully intact. Pressure dressing applied to site. Patient tolerated procedure well.
--- NOTE | 2019-12-13 21:00 | NUR ---
IV insertion IV access obtained, via clean sterile technique by inserting 22 gauge catheter at left hand after 3 attempt(s). IV secured properly. No trauma to site. Patient tolerated procedure well.
[2019-12-13] MEDS: ATORVASTATIN 20 MG TAB PO SCH (21:23)
[2019-12-13] MEDS: traZODone HCL 50 MG TAB PO SCH (21:23)
[2019-12-14] VITALS (7 sets, daily range): BP systolic 135–152; BP diastolic 52–87
[2019-12-14] MEDS: MORPHINE SULF INJ 2 MG/ML SYRINGE 1ML IV PRN ×3 (02:52→17:49)
[2019-12-14] MEDS: ONDANSETRON HCL 4 MG/2 ML VIAL IV PRN ×3 (02:52→17:49)
--- NOTE | 2019-12-14 02:55 | NUR ---
Patient Complains of Pain Patient complains of pain in suprapubic area. Patient given pain medication as prescribed. Will continue to monitor.
[2019-12-14] MEDS: metroNIDAZOLE 500MG/100ML 100 ML IV SCH ×3 (03:49→20:30)
[2019-12-14] MEDS: FUROSEMIDE 20 MG/2 ML VIAL IV SCH ×2 (06:00→17:49)
[2019-12-14] MEDS: CARISOPRODOL 350 MG TAB PO SCH ×3 (06:04→21:42)
[2019-12-14] MEDS: SODIUM CHLORIDE 0.9% 1,000 ML IV SCH (06:17)
--- NOTE | 2019-12-14 06:40 | NUR ---
PT. ASSESSED FOR PRN. MN. TX., NO RESP. DISTRESS OR SOB NOTED. BS. ARE CLEAR AND DIMINISHED BILAT. ,HR=64,RR=20,SP02=93% ON RA. NO TX. NOT GIVEN, PT. INSTRUCTED TO CALL IF NEEDED.
--- NOTE | 2019-12-14 07:00 | NUR ---
Care endorsed to Day shift RN.
[2019-12-14] MEDS: VANCOMYCIN 1GM/250ML 250 ML IV SCH (08:51)
[2019-12-14] MEDS: cefTRIAXone 1GM/50ML D5W 50 ML IV SCH (08:51)
[2019-12-14] MEDS: DULoxetine HCL 30 MG CAP PO SCH (10:51)
[2019-12-14] MEDS: ASPirin-EC 81 mg tab PO SCH (10:51)
[2019-12-14] MEDS: LISINOPRIL 20 MG TAB PO SCH (10:52)
[2019-12-14] MEDS: ENOXAPARIN SOD 40 MG/0.4 ML SYRINGE SC SCH (10:52)
[2019-12-14] MEDS: ALPRAZolam 0.25 MG TAB PO PRN (10:53)
--- NOTE | 2019-12-14 12:47 | NUR ---
IV removal IV from right hand 22G due to infiltration DC'd with clean sterile technique, catheter fully intact. Pressure dressing applied to site. Patient tolerated well. Will continue to monitor site.
[2019-12-14] MEDS: HYDROcodone-ACET 5/325MG TAB PO PRN (14:48)
--- NOTE | 2019-12-14 15:50 | NUR ---
Nutrition Assessment Notes Please refer to link for full assessment notes. Est Energy needs: [id number] kcals (17-20 kcal/kgBW) Est Protein needs: 91-100 gms/day (1.0-1.1 gm/kgBW) Will continue to monitor and reassess prn. Addendum: 12/14/19 at [address] Amended: Links added.
--- NOTE | 2019-12-14 17:35 | NUR ---
IV insertion IV access obtained, via clean sterile technique by inserting 22 gauge catheter at RIGHT UPPER ARM. IV secured properly. No trauma to site. Patient tolerated well.
--- NOTE | 2019-12-14 19:00 | NUR ---
Opening Shift Note Assumed care of patient, awake and alert. No S/S of distress/SOB or pain. Instructed on POC and to call for assist PRN, will continue to monitor for changes Q1hr and PRN. IV patent and flushing
[2019-12-14] MEDS: ATORVASTATIN 20 MG TAB PO SCH (21:40)
[2019-12-14] MEDS: traZODone HCL 50 MG TAB PO SCH (21:42)
[2019-12-14] MEDS: PANTOPRAZOLE 40 MG TAB PO SCH (21:50)
[2019-12-14] MEDS ORDERED: FAMOTIDINE 20 MG TAB PO SCH (22:00)
--- NOTE | 2019-12-14 22:00 | NUR ---
COLACE REFUSED NO BM SINCE 12/10. PATIENT TAKES FREQUENT NARCOTICS SO I BROUGHT IN A COLACE WITH [facility] [employer]. I WAS GOING OVER ALL OF HER MEDICATIONS AND WHAT THEY ARE FOR THE PATIENT SAID NO COLACE. I EXPLAINED THAT IT IS A STOOL SOFTNER AND NOT A LAXATIVE. SHE SAID NO IT WILL GIVE HER DIARRHEA . SHE SAID SHE WILL JUST TAKE MIRALAX WHEN SHE GOES HOME TOMORROW.
--- NOTE | 2019-12-14 22:40 | NUR ---
Respiratory note: AT BEDSIDE TO ASSESS PT FOR PRN TX. TX NOT INDICATED AT THIS TIME. NO S/S OF DISTRESS NOTED. BS ARE CLEAR DIMINISHED T/O, POX 94-96% ON 2LPM NC HR IN60S RR18-20. PT AWARE I CAN BE PAGED AT ANY TIME SHE FEELS SOB OR HAVING ANY CONCERN WITH HER BREATHING. RT NAME AND PAGER ASSIGNMENT WRITTEN ON PTS ROOM BOARD. WILL CONTINUE TO MONITOR NEEDED.
[2019-12-15] MEDS: HYDROcodone-ACET 5/325MG TAB PO PRN (00:42)
[2019-12-15] MEDS: ALPRAZolam 0.25 MG TAB PO PRN (00:43)
[2019-12-15] MEDS: metroNIDAZOLE 500MG/100ML 100 ML IV SCH ×2 (03:43→12:00)
[2019-12-15 05:34] VITALS: BP 136/64
[2019-12-15] MEDS: CARISOPRODOL 350 MG TAB PO SCH (05:48)
[2019-12-15] MEDS: FUROSEMIDE 20 MG/2 ML VIAL IV SCH (05:49)
[2019-12-15 06:06] LABS: Basophils # (auto) 0 10 ^3/uL (0-0.2); Basophils % (auto) 0.6 % (0.0-2.0); Eosinophils # (auto) 0.1 10 ^3/uL (0-0.8); Eosinophils % (auto) 2.5 % (0.0-7.0); Hematocrit 33.9 % (36.0-46.0); Hemoglobin 11.6 g/dL (12.2-16.2); Lymphocytes # (auto) 1.1 10 ^3/uL (0.4-5.4); Lymphocytes % (auto) 21.4 % (10.0-50.0); Mean Corpuscular Hemoglobin 32.3 pg (28.0-32.0); Mean Corpuscular Hgb Conc. 34.1 g/dL (32.0-36.0); Mean Corpuscular Volume 94.6 fL (80.0-100.0); Monocytes # (auto) 0.5 10 ^3/uL (0-1.3); Monocytes % (auto) 9.4 % (0.0-12.0); Neutrophils # (auto) 3.3 10 ^3/uL (1.6-8.6); Neutrophils % (auto) 66.1 % (37.0-80.0); Nucleated Red Blood Cells % 0.2 %; Platelet Count (auto) 204 10^3/uL (140-450); Red Blood Cells 3.58 10^6/uL (4.0-5.20); Red Cell Distribution Width 12.8 % (11.8-14.3)
[2019-12-15] MEDS ORDERED: VANCOMYCIN 1GM/250ML 250 ML IV SCH ×2 (07:00→11:00)
--- NOTE | 2019-12-15 07:08 | NUR ---
PRN MN TX NOT INDICATED AT THIS TIME. PT DENIES SOB OR ANY OTHER RESPIRATORY DISTRESS. PT ON 2L/MIN VIA NC. 94% O2 SATS, HR 62 BPM, RR18 BPM. RESPIRATION IS EVEN AND NON LABORED. PT INSTRUCTED TO CALL IF MN TX IS INDICATED. WILL CONTINUE TO MONITOR PT.
[2019-12-15 09:00] VITALS: BP 136/72
[2019-12-15] MEDS: cefTRIAXone 1GM/50ML D5W 50 ML IV SCH (10:27)
[2019-12-15] MEDS: LISINOPRIL 20 MG TAB PO SCH (10:28)
[2019-12-15] MEDS: ASPirin-EC 81 mg tab PO SCH (10:29)
[2019-12-15] MEDS: PANTOPRAZOLE 40 MG TAB PO SCH (10:29)
[2019-12-15] MEDS: ENOXAPARIN SOD 40 MG/0.4 ML SYRINGE SC SCH (10:29)
[2019-12-15] MEDS: DULoxetine HCL 30 MG CAP PO SCH (10:29)
[2019-12-15] MEDS: SODIUM CHLORIDE 0.9% 1,000 ML IV SCH (10:30)
--- NOTE | 2019-12-15 11:00 | NUR ---
IV removal IV DC'd on right upper arm with clean sterile technique, catheter fully intact. Pressure dressing applied to site. Patient tolerated well.
[2019-12-15 12:41] VITALS: BP 142/82
--- NOTE | 2019-12-15 13:18 | NUR ---
DISCHARGE PATIENT GIVEN DISCHARGE PAPERWORK AND PRESCRIPTIONS. TELEMONITOR NUMBER 50 REMOVED AND SENT TO HEART ICU. PATIENT QUESTIONS AND CONCERNS ANSWERED.
[2019-12-15] MEDS: IPRATROPIUM BROM 0.5 MG/2.5ML INH SOL NEB PRN ×2 (13:40→13:58)
[2019-12-15] MEDS: ALBUTEROL SULF 2.5 MG/0.5ML(0.5%) NEB SOLN NEB PRN ×2 (13:40→13:58)
== END 2019-12-15 13:41 | disposition home or self-care (01) | DRG 244 ==
LOC: ER 09:52 → TELE 09:53 → TELE-WESTW 21:00
PROVIDERS: ADMIT Hospitalist; ATTEND Internal Medicine
DX: K57.32 Diverticulitis of large intestine without perforation or abscess without bleeding (principal); J96.01 Acute respiratory failure with hypoxia; K44.9 Diaphragmatic hernia without obstruction or gangrene; I10 Essential (primary) hypertension; E66.9 Obesity, unspecified; G25.81 Restless legs syndrome; M19.90 Unspecified osteoarthritis, unspecified site; M79.7 Fibromyalgia; F41.9 Anxiety disorder, unspecified; I25.10 Atherosclerotic heart disease of native coronary artery without angina pectoris; J44.9 Chronic obstructive pulmonary disease, unspecified; Z79.899 Other long term (current) drug therapy; Z82.49 Family history of ischemic heart disease and other diseases of the circulatory system; Z83.3 Family history of diabetes mellitus; F32.9 Major depressive disorder, single episode, unspecified; F17.210 Nicotine dependence, cigarettes, uncomplicated; E78.5 Hyperlipidemia, unspecified; R00.1 Bradycardia, unspecified; E11.9 Type 2 diabetes mellitus without complications; Z85.71 Personal history of Hodgkin lymphoma; Z90.710 Acquired absence of both cervix and uterus; Z95.5 Presence of coronary angioplasty implant and graft; Z90.49 Acquired absence of other specified parts of digestive tract; Z68.32 Body mass index [BMI] 32.0-32.9, adult; Z88.1 Allergy status to other antibiotic agents; Z88.5 Allergy status to narcotic agent; Z88.8 Allergy status to other drugs, medicaments and biological substances
CPT/HCPCS: 36415; 71046; 74176; 80048; 80053; 80061; 80202; 80307; 81001; 82565; 83036; 83605; 84484; 85025; 87040; 87077; 87086; 87186; 93005; G0378; J0696; J2405; J3490

== ENCOUNTER → 2020-01-03 | Outpatient (CLI) | payer MEDICARE, MEDICAID ==
[~2020-01-03] MED LIST changes: +ALBUAER3 IN; +ALBUTEROL SULF 2.5 MG/0.5ML(0.5%) NEB SOLN ONE; -ALPR0.5T PO; -ASPI-498 PO; -CARI350T22 PO; +CETI10TA80 PO; +HYDR12.56 PO; +IBUP800T24 PO; -LISI-646 PO; +MORP1TAB12 PO; +OMEP-263 PO; +POTA8TAB2 PO; +ROPI0.5T18 PO; +TIZA4TAB9 PO; +TRAZ100T3 PO; +ZOLP5TAB5 PO
== END | disposition home or self-care (01) ==
LOC: RT 08:21
PROVIDERS: ATTEND Internal Medicine Pulmonary Disease
DX: J44.9 Chronic obstructive pulmonary disease, unspecified (principal)
CPT/HCPCS: 94060; 94727; 94729

== ENCOUNTER → 2020-01-10 | Outpatient (CLI) | payer MEDICARE, MEDICAID ==
[~2020-01-10] MED LIST changes: -ALBUTEROL SULF 2.5 MG/0.5ML(0.5%) NEB SOLN ONE
[2020-01-10 10:48] LABS: Basophils # (auto) 0 10 ^3/uL (0-0.2); Basophils % (auto) 0.2 % (0.0-2.0); Eosinophils # (auto) 0.1 10 ^3/uL (0-0.8); Hematocrit 38.8 % (36.0-46.0); Hemoglobin 12.7 g/dL (12.2-16.2); Lymphocytes # (auto) 1.3 10 ^3/uL (0.4-5.4); Lymphocytes % (auto) 20.3 % (10.0-50.0); Mean Corpuscular Hemoglobin 31.3 pg (28.0-32.0); Mean Corpuscular Hgb Conc. 32.8 g/dL (32.0-36.0); Mean Corpuscular Volume 95.3 fL (80.0-100.0); Monocytes # (auto) 0.4 10 ^3/uL (0-1.3); Monocytes % (auto) 6.5 % (0.0-12.0); Neutrophils # (auto) 4.4 10 ^3/uL (1.6-8.6); Platelet Count (auto) 232 10^3/uL (140-450); Red Blood Cells 4.07 10^6/uL (4.0-5.20); Red Cell Distribution Width 13.5 % (11.8-14.3); White Blood Cell 6.2 10^3/uL (4.4-10.8)
[2020-01-10 18:03] LABS: Potassium 4.2 mmol/L (3.5-5.1)
[2020-01-10 18:29] LABS: Albumin 3.3 g/dL (3.4-5.0); BUN/Creatinine Ratio 11.1; Bilirubin, Total 0.5 mg/dL (0.2-1.0); Calcium 8.4 mg/dL (8.5-10.1); Total Protein 6.5 g/dL (6.4-8.2)
== END | disposition home or self-care (01) ==
LOC: LAB 10:27
PROVIDERS: ATTEND Physician Assistant
DX: I25.10 Atherosclerotic heart disease of native coronary artery without angina pectoris (principal); K57.92 Diverticulitis of intestine, part unspecified, without perforation or abscess without bleeding; J44.9 Chronic obstructive pulmonary disease, unspecified; F17.200 Nicotine dependence, unspecified, uncomplicated; E78.5 Hyperlipidemia, unspecified; I73.9 Peripheral vascular disease, unspecified
CPT/HCPCS: 36415; 80053; 80061; 85025

== ENCOUNTER 2020-02-26 09:42 | Inpatient (IN) | payer MEDICARE, MEDICAID ==
[~2020-02-26] VITALS: Ht 167.6 cm; Wt 84.4 kg
[2020-02-26 11:06] LABS: Basophils # (auto) 0 10 ^3/uL (0-0.2); Basophils % (auto) 0.2 % (0.0-2.0); Eosinophils # (auto) 0.2 10 ^3/uL (0-0.8); Eosinophils % (auto) 2.8 % (0.0-7.0); Hematocrit 38.5 % (36.0-46.0); Hemoglobin 12.9 g/dL (12.2-16.2); Lymphocytes # (auto) 1.2 10 ^3/uL (0.4-5.4); Lymphocytes % (auto) 19.6 % (10.0-50.0); Mean Corpuscular Hemoglobin 32.5 pg (28.0-32.0); Mean Corpuscular Hgb Conc. 33.4 g/dL (32.0-36.0); Mean Corpuscular Volume 97.5 fL (80.0-100.0); Monocytes # (auto) 0.3 10 ^3/uL (0-1.3); Monocytes % (auto) 5.6 % (0.0-12.0); Neutrophils # (auto) 4.3 10 ^3/uL (1.6-8.6); Neutrophils % (auto) 71.8 % (37.0-80.0); Nucleated Red Blood Cells % 0.1 %; Platelet Count (auto) 210 10^3/uL (140-450); Red Blood Cells 3.95 10^6/uL (4.0-5.20); Red Cell Distribution Width 13.5 % (11.8-14.3); White Blood Cell 6.1 10^3/uL (4.4-10.8)
[2020-02-26 11:10] LABS: Urine Bacteria NONE SEEN /hpf (None Seen); Urine Blood Negative /uL (Negative); Urine Mucus FEW (None Seen); Urine Specific Gravity 1.015 (1.001-1.035); Urine WBC 1 /hpf (0 - 5)
[2020-02-26 11:22] LABS: Albumin 3.4 g/dL (3.4-5.0); Anion Gap 2 (5-15); Blood Urea Nitrogen 11 mg/dL (7-18); Calcium 8.6 mg/dL (8.5-10.1); Carbon Dioxide 28 mmol/L (21-32); Chloride 110 mmol/L (98-107); Glucose 91 mg/dL (74-106); Sodium 140 mmol/L (136-145)
[2020-02-26 11:28] LABS: Alanine Aminotransferase 16 U/L (13-56); Alkaline Phosphatase 67 U/L (45-117); Aspartate Aminotransferase 17 U/L (15-37); BUN/Creatinine Ratio 12.4; Bilirubin, Total 0.4 mg/dL (0.2-1.0); GFR African American 81 mL/min; GFR Non-African American 67 mL/min; Total Protein 6.6 g/dL (6.4-8.2)
[2020-02-26] MEDS ORDERED: NITROGLYCERIN 0.4 MG SL TAB SL PRN ×3 (13:00→14:00)
[2020-02-26] MEDS ORDERED: MORPHINE SULF INJ 2 MG/ML SYRINGE 1ML IV PRN ×2 (13:00→14:00)
[2020-02-26] MEDS ORDERED: HYDROcodone-ACET 5/325MG TAB PO ONE (13:15)
[2020-02-26] MEDS ORDERED: HYDR-392 PO (13:48)
[2020-02-26] MEDS ORDERED: BUDE1AER5 IN (13:50)
[2020-02-26] MEDS ORDERED: ALBUAER3 IN (13:50)
[2020-02-26] MEDS ORDERED: TIOT17SP IN (13:50)
[2020-02-26] MEDS ORDERED: PANT40TA2 PO (13:52)
[2020-02-26] MEDS ORDERED: ONDANSETRON HCL 4 MG/2 ML VIAL IV PRN ×2 (14:00)
[2020-02-26] MEDS ORDERED: DOCUSATE SOD 100 MG CAP PO PRN (14:00)
[2020-02-26] MEDS ORDERED: MORPHINE SULFATE 4 MG/ML SYR/VIAL IV PRN (14:00)
[2020-02-26] MEDS ORDERED: ACETAMINOPHEN 325 MG TAB PO PRN (14:00)
[2020-02-26] MEDS ORDERED: HYDROcodone-ACET 5/325MG TAB PO PRN (14:00)
[2020-02-26] MEDS ORDERED: LORazepam 0.5 MG TAB PO PRN ×2 (14:00)
[2020-02-26] MEDS ORDERED: ALUM & MAG HYDROX-SIMETH LIQ(MAALOX) 30 ML PO PRN (14:00)
[2020-02-26 14:29] LABS: Alcohol, Urine < 3.0 mg/dL (0-10); Amphetamine Screen, Urine NEGATIVE (NEGATIVE); Barbiturate Scree,Urine NEGATIVE (NEGATIVE); Benzodiazephine Screen, Urine POSITIVE (NEGATIVE); Cannabinoid Screen, Urine POSITIVE (NEGATIVE); Cocaine Screen, Urine NEGATIVE (NEGATIVE)
[2020-02-26 14:36] LABS: Opiate Scree,Urine NEGATIVE (NEGATIVE); Phencyclidine Screen, Urine NEGATIVE (NEGATIVE)
[2020-02-26] MEDS ORDERED: METHOCARBAMOL 500 MG TAB PO PRN (14:45)
[2020-02-26] MEDS ORDERED: ALBUTEROL SULF 2.5 MG/0.5ML(0.5%) NEB SOLN NEB PRN (14:45)
[2020-02-26] MEDS ORDERED: PANTOPRAZOLE 40 MG/10 ML VIAL INJ IV ONE (14:45)
[2020-02-26 15:42] LABS: Cholesterol 179 mg/dL (< 200)
[2020-02-26 15:46] LABS: HDL Cholesterol 71 mg/dL (40-59); LDL Cholesterol 101 mg/dL (< 100); Triglycerides 88 mg/dL (< 150)
[2020-02-26] MEDS ORDERED: METOPROLOL SUCCINATE XL 50 MG TAB PO ONE (16:30)
[2020-02-26] MEDS ORDERED: ENOXAPARIN SOD 40 MG/0.4 ML SYRINGE SC SCH (16:34)
[2020-02-26 17:00] VITALS: BP 110/68
[2020-02-26] MEDS: MORPHINE SULF INJ 2 MG/ML SYRINGE 1ML IV PRN ×2 (17:28→22:23)
[2020-02-26] MEDS: SODIUM CHLORIDE 0.9% 1,000 ML IV SCH (17:31)
[2020-02-26] MEDS: ASPirin 81 mg TAB PO SCH (17:43)
[2020-02-26] MEDS: IPRATROPIUM BROM 0.5 MG/2.5ML INH SOL NEB SCH ×2 (18:47→22:00)
[2020-02-26] MEDS ORDERED: INFLUENZA QUAD 2020-2021 0.5 ML SYRG IM ONE (20:00)
[2020-02-26] MEDS: ATORVASTATIN 20 MG TAB PO SCH (21:27)
[2020-02-26] MEDS: traZODone HCL 50 MG TAB PO SCH (21:28)
[2020-02-26] MEDS: BUDESONIDE (INHALATION) 0.5 MG/2 ML NEB NEB SCH (22:00)
[2020-02-26 22:14] VITALS: BP 109/72
[2020-02-26] MEDS: TEMAZEPAM 15 MG CAP PO PRN (23:31)
[2020-02-27] VITALS (7 sets, daily range): BP systolic 102–154; BP diastolic 72–89
[2020-02-27] MEDS: IPRATROPIUM BROM 0.5 MG/2.5ML INH SOL NEB SCH ×6 (02:00→22:00)
[2020-02-27] MEDS: MORPHINE SULF INJ 2 MG/ML SYRINGE 1ML IV PRN ×4 (03:04→19:53)
[2020-02-27] MEDS: SODIUM CHLORIDE 0.9% 1,000 ML IV SCH ×2 (06:33→23:20)
[2020-02-27 06:58] LABS: Potassium 3.9 mmol/L (3.5-5.1)
[2020-02-27 06:58] LABS: Hematocrit 39.6 % (36.0-46.0); Hemoglobin 13.6 g/dL (12.2-16.2); Mean Corpuscular Hemoglobin 32.8 pg (28.0-32.0); Mean Corpuscular Hgb Conc. 34.3 g/dL (32.0-36.0); Mean Corpuscular Volume 95.5 fL (80.0-100.0); Platelet Count (auto) 220 10^3/uL (140-450); Red Blood Cells 4.15 10^6/uL (4.0-5.20); Red Cell Distribution Width 13.7 % (11.8-14.3); White Blood Cell 6.9 10^3/uL (4.4-10.8)
[2020-02-27 07:02] LABS: INR 0.97 (0.9-1.15); Partial Thromboplastin Time 24.6 sec (23.0-31.2)
[2020-02-27 07:04] LABS: BUN/Creatinine Ratio 13.3; Calcium 8.4 mg/dL (8.5-10.1)
[2020-02-27 07:05] LABS: Basophils % (manual) 0 (0.0-2.0); Blast Cells 0; Metamyelocytes % 0; Myelocytes % 0; Promyelocytes % 0; Reactive Lymphocytes 0
[2020-02-27 07:39] LABS: Band Neutrophils % (manual) 1; Eosinophils % (manual) 1 (0-7); Lymphocytes % (manual) 29 (10.0-50.0); Monocytes % (manual) 5 (0-12)
[2020-02-27] MEDS: BUDESONIDE (INHALATION) 0.5 MG/2 ML NEB NEB SCH ×2 (10:25→22:00)
[2020-02-27] MEDS ORDERED: IODIXANOL 320MG/ML 100ML BTL IV ONE (10:47)
[2020-02-27] MEDS ORDERED: LIDOCAINE 2%HCL (LOCAL ANESTH.) INJ 20ML MDV ONE ×2 (10:47→11:40)
[2020-02-27] MEDS ORDERED: ANGIOMAX 250 MG VIAL IV ONE ×2 (10:57→11:39)
[2020-02-27] MEDS ORDERED: PHENYLEPHRINE HCL 10 MG/ML VL ONE (10:58)
[2020-02-27] MEDS ORDERED: SODIUM CHL 0.9% 0 ML ONE ×2 (10:58→11:40)
[2020-02-27] MEDS ORDERED: GLYCOPYRROLATE 0.2 MG/ML 1ML VIAL ONE ×2 (10:58→11:39)
[2020-02-27] MEDS ORDERED: IOHEXOL 350 MG/ML 100ML IJ ONE (11:09)
[2020-02-27] MEDS ORDERED: cloNIDine HCL 0.1 MG TAB ONE (11:27)
[2020-02-27] MEDS ORDERED: HEPARIN IN NS 1000Units/500mL 0 ML ONE (11:40)
[2020-02-27] MEDS: PANTOPRAZOLE 40 MG/10 ML VIAL INJ IV SCH (14:18)
[2020-02-27] MEDS: ASPirin 81 mg TAB PO SCH (14:18)
[2020-02-27] MEDS: METOPROLOL SUCCINATE XL 50 MG TAB PO SCH (14:19)
[2020-02-27] MEDS ORDERED: LORazepam 2MG/ML-1ML VIAL IV PRN (15:45)
[2020-02-27] MEDS: traZODone HCL 50 MG TAB PO SCH (21:51)
[2020-02-27] MEDS: ATORVASTATIN 20 MG TAB PO SCH (21:51)
[2020-02-28] MEDS: IPRATROPIUM BROM 0.5 MG/2.5ML INH SOL NEB SCH ×4 (02:00→14:00)
[2020-02-28 04:00] VITALS: BP 144/76
[2020-02-28 05:00] VITALS: BP 144/76
[2020-02-28] MEDS: MORPHINE SULF INJ 2 MG/ML SYRINGE 1ML IV PRN ×4 (06:10→22:57)
[2020-02-28 06:24] LABS: Basophils # (auto) 0.1 10 ^3/uL (0-0.2); Basophils % (auto) 1.1 % (0.0-2.0); Eosinophils # (auto) 0.1 10 ^3/uL (0-0.8); Eosinophils % (auto) 1.9 % (0.0-7.0); Hematocrit 39.3 % (36.0-46.0); Hemoglobin 13.3 g/dL (12.2-16.2); Lymphocytes # (auto) 1.1 10 ^3/uL (0.4-5.4); Mean Corpuscular Hemoglobin 32.4 pg (28.0-32.0); Mean Corpuscular Hgb Conc. 33.9 g/dL (32.0-36.0); Mean Corpuscular Volume 95.7 fL (80.0-100.0); Monocytes # (auto) 0.4 10 ^3/uL (0-1.3); Monocytes % (auto) 5.8 % (0.0-12.0); Neutrophils # (auto) 5.5 10 ^3/uL (1.6-8.6); Neutrophils % (auto) 76.2 % (37.0-80.0); Platelet Count (auto) 229 10^3/uL (140-450); Red Cell Distribution Width 13.7 % (11.8-14.3); White Blood Cell 7.2 10^3/uL (4.4-10.8)
[2020-02-28 06:52] LABS: Calcium 8.7 mg/dL (8.5-10.1); Magnesium 2.5 mg/dL (1.6-2.6); Potassium 4.3 mmol/L (3.5-5.1)
[2020-02-28 06:55] LABS: BUN/Creatinine Ratio 15.1
[2020-02-28] MEDS: BUDESONIDE (INHALATION) 0.5 MG/2 ML NEB NEB SCH ×2 (07:16→18:22)
[2020-02-28 09:01] VITALS: BP 145/75
[2020-02-28] MEDS: PANTOPRAZOLE 40 MG/10 ML VIAL INJ IV SCH (09:06)
[2020-02-28] MEDS: METOPROLOL SUCCINATE XL 50 MG TAB PO SCH (09:07)
[2020-02-28] MEDS: ASPirin 81 mg TAB PO SCH (09:08)
[2020-02-28] MEDS: ENOXAPARIN SOD 40 MG/0.4 ML SYRINGE SC SCH (09:16)
[2020-02-28] MEDS ORDERED: IOHEXOL 350 MG/ML 100ML IJ ONE (09:35)
[2020-02-28] MEDS ORDERED: cloNIDine HCL 0.1 MG TAB PO PRN (10:45)
[2020-02-28] MEDS ORDERED: LORazepam 2MG/ML-1ML VIAL IV ONE (12:15)
[2020-02-28 13:00] VITALS: BP 143/83
[2020-02-28] MEDS: SODIUM CHLORIDE 0.9% 1,000 ML IV SCH (13:45)
[2020-02-28 17:00] VITALS: BP 152/83
[2020-02-28] MEDS ORDERED: IPRATROPIUM BROM 0.5 MG/2.5ML INH SOL NEB PRN (17:15)
[2020-02-28] MEDS: traZODone HCL 50 MG TAB PO SCH (21:28)
[2020-02-28 22:00] VITALS: BP 142/81
[2020-02-28] MEDS ORDERED: ATORVASTATIN 20 MG TAB PO SCH (22:00)
[2020-02-28] MEDS: TEMAZEPAM 15 MG CAP PO PRN (23:22)
[2020-02-29] MEDS: MORPHINE SULF INJ 2 MG/ML SYRINGE 1ML IV PRN ×3 (03:06→13:58)
[2020-02-29 04:53] VITALS: BP 139/75
[2020-02-29 07:21] LABS: BUN/Creatinine Ratio 13.8; Calcium 8.4 mg/dL (8.5-10.1)
[2020-02-29 09:24] VITALS: BP 133/94
[2020-02-29] MEDS: SODIUM CHLORIDE 0.9% 1,000 ML IV SCH (09:45)
[2020-02-29] MEDS ORDERED: CLOPIDOGREL BISULFATE 75 MG TAB PO ONE (11:00)
[2020-02-29] MEDS: ASPirin 81 mg TAB PO SCH (11:00)
[2020-02-29] MEDS: METOPROLOL SUCCINATE XL 50 MG TAB PO SCH (11:00)
[2020-02-29] MEDS: ENOXAPARIN SOD 40 MG/0.4 ML SYRINGE SC SCH (11:00)
[2020-02-29] MEDS: PANTOPRAZOLE 40 MG/10 ML VIAL INJ IV SCH (11:00)
[2020-02-29] MEDS ORDERED: ATOR20TA50 PO (11:03)
[2020-02-29] MEDS ORDERED: ASPI81CH43 PO (11:03)
[2020-02-29] MEDS ORDERED: METO-6 PO (11:03)
[2020-02-29] MEDS ORDERED: AMOX500T86 PO (11:03)
[2020-02-29] MEDS ORDERED: CLOP75TA28 PO (11:03)
[2020-02-29 13:05] VITALS: BP 140/82
[2020-02-29] MEDS ORDERED: INFLUENZA QUAD 2020-2021 0.5 ML SYRG IM ONE (13:30)
[2020-02-29] MEDS: BUDESONIDE (INHALATION) 0.5 MG/2 ML NEB NEB SCH (14:03)
== END 2020-02-29 15:50 | disposition home or self-care (01) | DRG 204 ==
LOC: ER 09:42 → TELE 09:43 → TELE-CENTR 14:24
PROVIDERS: ADMIT Hospitalist; ATTEND Internal Medicine
PROC: B3151ZZ Fluoroscopy of Bilateral Common Carotid Arteries using Low Osmolar Contrast (ICD-10-PCS; principal; 2020-02-27)
PROC: B3121ZZ Fluoroscopy of Left Subclavian Artery using Low Osmolar Contrast (ICD-10-PCS; 2020-02-27)
PROC: B3181ZZ Fluoroscopy of Bilateral Internal Carotid Arteries using Low Osmolar Contrast (ICD-10-PCS; 2020-02-27)
PROC: B31C1ZZ Fluoroscopy of Bilateral External Carotid Arteries using Low Osmolar Contrast (ICD-10-PCS; 2020-02-27)
DX: R55 Syncope and collapse (principal); I65.23 Occlusion and stenosis of bilateral carotid arteries; E66.01 Morbid (severe) obesity due to excess calories; I10 Essential (primary) hypertension; I82.B12 Acute embolism and thrombosis of left subclavian vein; I25.9 Chronic ischemic heart disease, unspecified; G25.81 Restless legs syndrome; K21.9 Gastro-esophageal reflux disease without esophagitis; K29.70 Gastritis, unspecified, without bleeding; K57.90 Diverticulosis of intestine, part unspecified, without perforation or abscess without bleeding; E78.5 Hyperlipidemia, unspecified; F12.90 Cannabis use, unspecified, uncomplicated; F17.210 Nicotine dependence, cigarettes, uncomplicated; F32.9 Major depressive disorder, single episode, unspecified; G62.9 Polyneuropathy, unspecified; G89.4 Chronic pain syndrome; F41.9 Anxiety disorder, unspecified; I25.2 Old myocardial infarction; I25.10 Atherosclerotic heart disease of native coronary artery without angina pectoris; J44.9 Chronic obstructive pulmonary disease, unspecified; M19.90 Unspecified osteoarthritis, unspecified site; M47.812 Spondylosis without myelopathy or radiculopathy, cervical region; Z79.82 Long term (current) use of aspirin; Z82.49 Family history of ischemic heart disease and other diseases of the circulatory system; Z83.3 Family history of diabetes mellitus; Z86.73 Personal history of transient ischemic attack (TIA), and cerebral infarction without residual deficits; Z90.710 Acquired absence of both cervix and uterus; Z95.5 Presence of coronary angioplasty implant and graft; Z90.49 Acquired absence of other specified parts of digestive tract; Z88.1 Allergy status to other antibiotic agents; Z88.5 Allergy status to narcotic agent; Z88.8 Allergy status to other drugs, medicaments and biological substances; Z23 Encounter for immunization; I65.01 Occlusion and stenosis of right vertebral artery
CPT/HCPCS: 36223; 36225; 36415; 70450; 70498; 70551; 71045; 72125; 76536; 80048; 80053; 80061; 80307; 81001; 83036; 83735; 84443; 84484; 85007; 85025; 85027; 85610; 85730; 86850; 86900; 86901; 87040; 87086; 93005; 93306; 93886; 94640; 97110; 97116; 97530; 99152; C9113; G0378; J2405; Q9967

== ENCOUNTER → 2021-04-23 | Outpatient (CLI) | payer MEDICARE, MEDICAID ==
[~2021-04-23] MED LIST changes: +AMOX500T86 PO; +ASPI81CH43 PO; +ATOR20TA50 PO; +BUDE1AER5 IN; -CETI10TA80 PO; +CLOP75TA28 PO; +HYDR-392 PO; -HYDR12.56 PO; -IBUP800T24 PO; +METO-6 PO; -NOR10T PO; -OMEP-263 PO; +PANT40TA2 PO; -POTA8TAB2 PO; +TIOT17SP IN
== END | disposition home or self-care (01) ==
LOC: CT 08:40
PROVIDERS: ATTEND Internal Medicine
DX: I82.B12 Acute embolism and thrombosis of left subclavian vein (principal); R91.1 Solitary pulmonary nodule; J43.2 Centrilobular emphysema; I70.0 Atherosclerosis of aorta; I77.810 Thoracic aortic ectasia; I65.22 Occlusion and stenosis of left carotid artery; I25.10 Atherosclerotic heart disease of native coronary artery without angina pectoris; K44.9 Diaphragmatic hernia without obstruction or gangrene; M47.814 Spondylosis without myelopathy or radiculopathy, thoracic region; I73.9 Peripheral vascular disease, unspecified; J84.10 Pulmonary fibrosis, unspecified
CPT/HCPCS: 71275; Q9967

== ENCOUNTER 2021-12-25 16:59 | Emergency (ER) | payer MEDICARE, MEDICAID ==
[~2021-12-25] VITALS: Ht 167.6 cm; Wt 86.0 kg
[2021-12-25 18:13] VITALS: BP 141/44
[2021-12-25] MEDS ORDERED: KETOROLAC TROMETH 30 MG/ML 1ML VIAL IM ONE (19:15)
[2021-12-25] MEDS ORDERED: IBUP800T26 PO (21:12)
== END 2021-12-25 21:13 | disposition home or self-care (01) ==
LOC: ER 17:04
DX: S82.892A Other fracture of left lower leg, initial encounter for closed fracture (principal); J44.9 Chronic obstructive pulmonary disease, unspecified; E78.5 Hyperlipidemia, unspecified; F17.210 Nicotine dependence, cigarettes, uncomplicated; Z90.49 Acquired absence of other specified parts of digestive tract; Z90.710 Acquired absence of both cervix and uterus; X50.1XXA Overexertion from prolonged static or awkward postures, initial encounter; Y93.89 Activity, other specified; Y92.89 Other specified places as the place of occurrence of the external cause; Y99.8 Other external cause status
CPT/HCPCS: 73610; 96372; 99283; J1885

== ENCOUNTER → 2022-05-11 | Outpatient (CLI) | payer MEDICARE, MEDICAID ==
[~2022-05-11] MED LIST changes: +IBUP800T26 PO
[2022-05-11 10:30] LABS: Basophils # (auto) 0.1 10 ^3/uL (0-0.2); Basophils % (auto) 1.3 % (0.0-2.0); Eosinophils # (auto) 0.1 10 ^3/uL (0-0.8); Eosinophils % (auto) 0.7 % (0.0-7.0); Hematocrit 35.2 % (36.0-46.0); Hemoglobin 12.2 g/dL (12.2-16.2); Lymphocytes % (auto) 13.5 % (10.0-50.0); Mean Corpuscular Hemoglobin 33.2 pg (28.0-32.0); Mean Corpuscular Hgb Conc. 34.6 g/dL (32.0-36.0); Mean Corpuscular Volume 95.9 fL (80.0-100.0); Monocytes # (auto) 0.3 10 ^3/uL (0-1.3); Monocytes % (auto) 4.2 % (0.0-12.0); Neutrophils # (auto) 5.9 10 ^3/uL (1.6-8.6); Neutrophils % (auto) 80.3 % (37.0-80.0); Red Blood Cells 3.67 10^6/uL (4.0-5.20); Red Cell Distribution Width 13.9 % (11.8-14.3); White Blood Cell 7.4 10^3/uL (4.4-10.8)
[2022-05-11 10:56] LABS: Potassium 4.1 mmol/L (3.5-5.1)
[2022-05-11 11:17] LABS: Albumin 3.4 g/dL (3.4-5.0); Calcium 8.9 mg/dL (8.5-10.1)
[2022-05-11 11:20] LABS: Bilirubin, Total 1.1 mg/dL (0.2-1.0); Total Protein 6.9 g/dL (6.4-8.2)
== END | disposition home or self-care (01) ==
LOC: LAB 10:14
PROVIDERS: ATTEND Nurse Practitioner Family
DX: I73.9 Peripheral vascular disease, unspecified (principal); I10 Essential (primary) hypertension; E78.5 Hyperlipidemia, unspecified; J44.9 Chronic obstructive pulmonary disease, unspecified
CPT/HCPCS: 36415; 80053; 80061; 84439; 84443; 85025

== ENCOUNTER → 2022-06-18 | Outpatient (CLI) | payer MEDICARE, MEDICAID | END | disposition home or self-care (01) | LOC: LAB 11:11 | PROVIDERS: ATTEND Nurse Practitioner Family | DX: N39.0 Urinary tract infection, site not specified (principal) | CPT/HCPCS: 87086 ==

== ENCOUNTER 2022-09-29 10:28 | Emergency (ER) | payer MEDICARE, MEDICAID ==
[~2022-09-29] VITALS: Ht 167.6 cm; Wt 78.2 kg
[~2022-09-29 10:28] MED LIST changes: +IBUP-1455 PO; -IBUP800T26 PO; -ROPI0.5T18 PO; +ROPI0.5T4 PO; +TRAZ-228 PO; -TRAZ100T3 PO
[2022-09-29 11:39] VITALS: BP 135/78
[2022-09-29] MEDS ORDERED: LIDOCAINE 1% HCL (LOCAL ANESTH.) INJ 20ML MDV ID ONE (12:45)
[2022-09-29] MEDS ORDERED: HYDROcodone-ACET 10/325MG TAB PO ONE (13:00)
[2022-09-29] MEDS ORDERED: CEPH500C PO ×3 (14:06→16:02)
[2022-09-29] MEDS ORDERED: ACET500T58 PO ×3 (14:06→16:02)
[2022-09-29] MEDS ORDERED: TETANUS-DIPTH-ACEL PERTUSSIS 0.5ML SYR Tdap IM ONE (14:15)
[2022-09-29] MEDS ORDERED: NEOMYCIN-BACITRACIN-POLYM 15GM TOP OINT TOP SCH (14:15)
== END 2022-09-29 14:52 | disposition home or self-care (01) ==
LOC: ER 10:28
DX: S51.812A Laceration without foreign body of left forearm, initial encounter (principal); S00.83XA Contusion of other part of head, initial encounter; S60.410A Abrasion of right index finger, initial encounter; F41.9 Anxiety disorder, unspecified; I25.10 Atherosclerotic heart disease of native coronary artery without angina pectoris; J44.9 Chronic obstructive pulmonary disease, unspecified; F32.9 Major depressive disorder, single episode, unspecified; E78.5 Hyperlipidemia, unspecified; I25.2 Old myocardial infarction; F17.210 Nicotine dependence, cigarettes, uncomplicated; I11.0 Hypertensive heart disease with heart failure; I50.9 Heart failure, unspecified; W01.198A Fall on same level from slipping, tripping and stumbling with subsequent striking against other object, initial encounter; Y93.89 Activity, other specified; Y92.89 Other specified places as the place of occurrence of the external cause; Y99.8 Other external cause status
CPT/HCPCS: 12005; 70450; 90471; 90715; 99285; J2001